=== PATIENT | male | born 1955 | race Caucasian/White ===

== ENCOUNTER 2020-10-24 19:41 | Emergency (ER) | payer OTHER ==
--- OUTSIDE RECORDS SUMMARY | 2020-10-24 19:45 | XMS REPORT | Continuity of Care Document ---
:1955 Author Organization [facility] t Address [address] [place] [address] Care Team Providers Name Role Phone Uvaldo Walker MD Primary Care Physician Uvaldo Walker MD Attending Clinician Pob, Lab Main Attending Clinician Unavailable Semaj WAN, Dieter Attending Clinician Provider, Urgent Care Attending Clinician Unavailable Doctor Unassigned, Name Attending Clinician Unavailable Clinton Townsend DO Attending Clinician Payers Payer Name Policy Type Policy Number Effective Date Expiration Date S ource Problems Condition Condition Condition Status Onset Resolution Last Treating Co mments Source Name Details Category Date Date Treatment Clinician Date Low-tensio Low-tensio Disease Active [facility] glaucoma n glaucoma 3-08 Danielle kes - of both of both 00:00: Medical eyes, eyes, 00 Center moderate moderate stage stage Allergies, Adverse Reactions, Alerts Allergy Allergy Status Severity Reaction(s) Onset Inactive Treating Comm ents Source Name Type Date Date Clinician Iodine Propensi Active Injected [facility] - Iodide adverse 00:00: Medical Containi reaction 00 [place] ng s Products Tetracyc Propensi Active [facility] - adverse 00:00: Medical reaction 00 [place] s codeine DA [facility] 4-12 00:00: [address] tetracyc DA Active [facility] line 08-31 00:00: [address] IODINE DA Active [facility] IV 08-31 00:00: [address] Social History Social Habit Start Date Stop Date Quantity Comments Source Sex Assigned At [facility] History of tobacco Snuff User [facility] use [facility] Cigarettes smoked 2016-08-08 2016-08-[address] [facility] - current (pack per 00:00:00 00:00:00 [facility] Center day) - Reported Cigarette 2016-08-08 2016-08-[address] [facility] - pack-years 00:00:00 00:00:00 [facility] Tobacco use and 2016-08-08 2016-08-[address] [facility] - exposure 00:00:00 00:00:00 [facility] Alcohol intake 2016-08-08 2016-08-08 [facility] 00:[facility]:00:00 of alcohol [facility] Center (finding) Tobacco Comment 2016-08-04 2016-08-04 1 [facility]00 [facility] Smoking Status Start Date Stop Date Source Current every day smoker 2016-08-08 00:00:00 [facility] Medications Ordered Filled Start Stop Current Ordering Indication Dosage Frequency Signature Comments Components Source Medication Medication Date Date Medication? Clinician (SIG) Name Name azelastine Yes 205.5ug Q.5D 205.[address] (ASTEPRO) 3-20 by Each [facility] - 0.15 % 09:43: Nare route Medic al (205.5 mcg) 35 2 (two) Cente r [place] times daily. levocetiriz 2017-0 Yes 5mg QD Take [address] ine (XYZAL) 3-20 by mouth Luke s - 5 MG tablet 09:43: every Medic al 35 evening. [place] pantoprazol 20170 Yes 20mg QD Take [address] e 3-20 by mouth [facility] - (PROTONIX) 09:43: daily. Medic al 20 MG 35 Center tablet atorvastati 0 Yes 40mg QD Take [address] n (LIPITOR) 3-20 by mouth Luke s - 40 MG 09:43: daily. Medical tablet 35 [place] metoprolol 0 Yes 50mg QD Take [address] (TOPROL-XL) 3-20 by mouth Luke s - 50 MG 24 hr 09:43: daily. Medi aixa tablet 35 [place] celecoxib Yes 200mg Take [address] (CELEBREX) 3-20 mg by [facility] - 200 MG 09:43: mouth Medical capsule 35 every 12 Center (twelve) hours as needed for Pain. fenofibrate 0 Yes 130mg Take [address] micronized 3-20 mg by [facility] - (ANTARA) 09:43: mouth Medical 130 MG 35 every Center capsule morning before breakfast. clopidogrel 0 Yes 75mg QD Take [address] (PLAVIX) 75 3-20 by mouth Luke s - mg tablet 09:43: daily. Medica l 35 [place] amLODIPine Yes 10mg QD Take [address] (NORVASC) 3-20 by mouth [facility] - 10 MG 09:43: daily. Medical tablet 35 [place] travoprost Yes 1[drp] QD Place [address] (TRAVATAN 3-20 drop into [facility] - Z) 0.004 % 09:43: both eyes Me dical Drop 35 nightly. [place] ophthalmic drops dorzolamide 0 Yes 1[drp] Q.5D [address] -timolol 3-20 (two) [facility] - (COSOPT) 09:43: times Medical 22.3-6.8 35 daily. [place] mg/mL ophthalmic solution tamsulosin 0 Yes .4mg QD Take 0.[address] (FLOMAX) 3-20 mg by [facility] - 0.4 mg Cp24 09:43: mouth Medic al 24 hr 35 daily. Center capsule spironolact Yes 25mg QD Take [address] one 12.5 MG 3-20 by mouth Luke s - halftab 09:43: daily. Medical half tablet 35 Center allopurinol 0 Yes 100mg QD Take [address] (ZYLOPRIM) 3-20 mg by [facility] - 100 MG 09:43: mouth Medical tablet 35 daily. Center hydroCHLORO 0 Yes 25mg QD Take [address] thiazide 3-20 by mouth [facility]ukes - (HYDRODIURI 09:43: daily. Medi aixa L) 25 MG 35 Center tablet losartan Yes 100mg QD Take [address] (COZAAR) 3-20 mg by [facility] - 100 MG 09:43: mouth Medical tablet 35 daily. Center ranolazine Yes 500mg Q.5D Take [address] (RANEXA) 3-20 mg by [facility] - 500 MG 12 09:43: mouth 2 Medic al hr tablet 35 (two) Center times daily. nitroglycer Yes .4mg Place 0.[address] in 3-20 mg under [facility] - (NITROSTAT) 09:43: the tongue Medical 0.4 MG SL 35 every 5 Center tablet (five) minutes as needed for Chest pain Put 1 pill under tongue every 5min as needed for chest pain.No more than 3 doses in 15min.Call 911 if pain is unrelieved 5min after 1st dose . triamcinolo Yes Q.5D Apply [facility] 3-20 topically [facility] - (KENALOG) 09:43: 2 (two) Medic al 0.025 % 35 times Center cream daily. diphenoxyla Yes 1{tbl} Take [address] te-atropine 3-20 tablet by Bianka es - (DIPHENOXYL 09:43: mouth 4 Med ical ATE 35 (four) Center W/ATROPINE) times 2.5-0.025 daily as mg per needed for tablet Diarrhea. sildenafil Yes 100mg Take [address] (VIAGRA) 3-20 mg by [facility]ukes - 100 MG 09:43: mouth Medical tablet 35 daily as Center needed for Erectile Dysfunctio n. niacin Yes 500mg Take [address] (SLO-NIACIN 3-20 mg by [facility] - ) 500 mg 09:43: mouth 2 Medica l tablet 35 (two) Center times daily with breakfast and dinner. aspirin 81 Yes 81mg QD Take [address] MG EC 3-20 by mouth [facility] - tablet 09:43: daily. Medical 35 Center HYDROcodone Yes 1{tbl} Take [address] -acetaminop 3-20 tablet by Bianka es - hen (NORCO 09:43: mouth Medica l 5-325) 35 every 6 Center 5-325 mg (six) per tablet hours as needed for Pain. cholecalcif Yes Take by [facility] deangelo, 3-20 mouth. [facility] - vitamin D3, 09:43: Medica l 2,000 unit 35 Center Cap vitamin E Yes 1000U QD Take 1,[address] 1000 UNIT 3-20 Units by [facility]ukes - capsule 09:43: mouth Medical 35 daily. [place] omega-3 Yes 2g Q.5D Take [address] fatty 3-20 by mouth 2 [facility] - acids-fish 09:43: (two) Medica l oil 35 times Center 340-1,000 daily. mg Cap per capsule multivitami Yes 1{tbl} QD Take [address] n per 3-20 tablet by [facility] - tablet 09:43: mouth Medical 35 daily. [place] coenzyme Yes 100mg QD Take [address] Q10 100 mg 3-20 mg by [facility]ukes - capsule 09:43: mouth Medical 35 daily. [place] Procedures This patient has no known procedures. Encounters Start End Encounter Admission Attending Care Care Encounter Source Date/Time Date/Time Type Type Clinicians Facility Department ID 2020-10-12 2020-10-12 [facility] [id number] 00:00:00 00:00:00 [facility] [id number] Uvaldo Evans [id number] Felicia [phone] nal [address] 2020-10-06 2020-10-06 [facility] [id number] 00:00:00 00:00:00 [facility] [id number] [place] [id number] Professio [phone] [facility] [address] 2020-09-22 2020-09-22 Information Systems Consultant Kylah Little [facility] 1.2.840.114 [id number] 10:23:34 10:38:34 Visit Lab Main Cristina [id number] [place] [id number] Professio [phone] [address] 2020-09-16 2020-09-16 [facility] 1.2.840.114 [id number] 08:30:29 23:59:00 Encounter Tisha Cristina [id number] Dieter [place] [id number] [place] [id number] 2020-09-08 2020-09-08 Refill [facility] [id number] 00:00:00 00:00:00 [facility] [id number] [place] [id number] Professio [phone] [place] [address] [address] 2020-09-07 2020-09-07 [facility] [id number] 00:00:00 00:00:00 [facility] [id number] [place] [id number] Professio [phone] [place] [address] [address] 2020-09-06 2020-09-06 [facility] [id number] 12:20:11 12:40:11 [facility] [id number] [place] [id number] Professio [phone] [place] [address] [address] 2020-08-31 2020-08-31 Orders Doctor YURIY 1.2.840.114 [id number] 00:00:00 00:00:00 Only Unassigned, [facility] [id number] [place] [facility] [id number] 2020-08-19 2020-08-19 Information Systems Consultant Kylah Little [facility] 1.2.840.114 [id number] 13:50:27 14:05:27 Visit Lab Main Cristina [id number] [place] [id number] Professio [phone] [facility] 353 [facility] 2020-08-19 2020-08-19 Orders Doctor YURIY 1.2.840.114 [id number] 00:00:00 00:00:00 Only Unassigned, UMA [id number] [place] [facility] [id number] [id number] 2020-08-15 2020-08-15 [facility] 1.2.840.114 [id number] 00:00:00 00:00:00 [facility] [id number] Edt[place] [id number] Professio [phone] [place] [address] [address] 2020-07-28 2020-07-28 [facility] 1.2.840.114 [id number] 00:00:00 00:00:00 [facility] [id number] [facility] [id number] Professio [phone] [place] [address] [address] One 2020-07-27 2020-07-27 Patient [facility] 1.2.840.114 [id number] 00:00:00 00:00:00 Outreach [facility] [id number] [facility] [id number] PAVMARIAM [id number] [id number] 2020-07-21 2020-07-21 [facility] [id number] 14:42:37 23:59:00 Encounter Rob Evans [id number] Edtoma Wesis [id number] [place] [id number] 2020-07-21 2020-07-21 [facility] 1.2.184.000 [id number] 14:41:02 14:41:02 Encounter Rob Evans [id number] Edtoma Weiss [id number] [place] [id number] 2020-07-21 2020-07-21 [facility] 1.[facility].114 [id number] 00:00:00 00:00:00 [facility] [id number] [place] [id number] Professio [phone] [place] [address] [address] 2020-07-16 2020-07-16 Orders Doctor YURIY 1.2.840.114 [id number] 00:00:00 00:00:00 Only Unassigned, [facility]MA [id number] [place] [facility] [id number] 2020-07-14 2020-07-14 [facility] 1.2.840.114 [id number] 00:00:00 00:00:00 [facility] [id number] [place] [id number] Professio [phone] [place] [address] Office [facility] One 2020-07-03 2020-07-03 [facility] 1.2.840.114 [id number] 00:00:00 00:00:00 [facility] [id number] [place] [id number] Professio [phone] [address] One 2020-07-01 2020-07-01 Office [facility] 1.2.840.114 [id number] 14:00:59 14:15:59 Visit [facility] [id number] [place] [id number] Professio [phone] [address] One Results Test Description Test Time Test Comments Results Result Comments Source BASIC METABOLIC PANEL 2019-07-28 05:39:00 Test Item Value Reference Range Interpretation Comme nts SODIUM (test code = NA) 140 MMOL/L 137-145 N POTASSIUM (test code = K) 3.3 MMOL/L 3.5-5.1 L CHLORIDE (test code = CL) 108 MMOL/L 98-107 H CARBON DIOXIDE (test code = CO2) 25 MMOL/L 22-30 N GLUCOSE (test code = GLU) 99 MG/DL 74-106 N BLOOD UREA NITROGEN (test code = 29 MG/DL 9-20 H BUN) GLOMERULAR FILTRATION RATE (test > 60 Reporting units: ml/min/1.73 code = GFR) m2 (Modified M DRD Formula)Referen ce Range: > or = 60 ml/min/1.7 3 m2 CREATININE (test code = CREAT) 1.20 MG/DL 0.66-1.25 N CALCIUM (test code = CA) 8.9 MG/DL 8.4-10.2 N BASIC METABOLIC [id number] 05:37:00 Test Item Value Reference Range Interpretation Comments SODIUM (test code = NA) 140 MMOL/L 137-145 N POTASSIUM (test code = K) 3.3 MMOL/L 3.5-5.1 L CHLORIDE (test code = CL) 108 MMOL/L 98-107 H CARBON DIOXIDE (test code = CO2) MMOL/L 22-30 GLUCOSE (test code = GLU) MG/DL 74-106 BLOOD UREA NITROGEN (test code = MG/DL 9-20 BUN) GLOMERULAR FILTRATION RATE (test code = GFR) CREATININE (test code = CREAT) MG/DL 0.66-1.25 CALCIUM (test code = CA) MG/DL 8.7-9.7 CBC W/AUTO [id number] 05:18:00 Test Item Value Reference Range Interpretation Comments WHITE BLOOD CELL (test code = 10.7 K/MM3 3.8-9.8 H WBC) RED BLOOD CELL (test code = 3.12 M/MM3 3.95-5.67 L RBC) HEMOGLOBIN (test code = HGB) 10.2 G/DL 12.4-16.7 L HEMATOCRIT (test code = HCT) 30.4 % 35.9-49.5 L MEAN CELL VOLUME (test code = 97 fL 81.7-96.1 H MCV) MEAN CELL HGB (test code = MCH) 32.7 pg 27.6-33.2 N MEAN CELL HGB CONCETRATION 33.6 % 32.9-35.5 N (test code = MCHC) RED CELL DISTRIBUTION WIDTH 14.5 % 12.1-15.2 N (test code = RDW) PLATELET COUNT (test code = 228 K/MM3 129-368 N PLT) MEAN PLATELET VOLUME (test code 9.9 fl 7.4-10.4 N = MPV) NEUTROPHIL % (test code = NT%) 76.3 % 43-75 H IMMATURE GRANULOCYTE % (test 0.6 % 0.0-2.0 N code = IG%) LYMPHOCYTE % (test code = LY%) 13.4 % 14-44 L MONOCYTE % (test code = MO%) 9.4 % 4-13 N EOSINOPHIL % (test code = EO%) 0.2 % 0-6 N BASOPHIL % (test code = BA%) 0.1 % 0-2 N NUCLEATED RBC % (test code = 0.0 % 0-1.0 N NRBC%) NEUTROPHIL # (test code = NT#) 8.18 K/mm3 2.0-7.6 H IMMATURE GRANULOCYTE # (test 0.06 x10 3/uL 0-0.03 H code = IG#) LYMPHOCYTE # (test code = LY#) 1.44 K/mm3 1.0-3.8 N MONOCYTE # (test code = MO#) 1.01 K/mm3 0.1-0.8 H EOSINOPHIL # (test code = EO#) 0.02 K/mm3 0.0-0.2 N BASOPHIL # (test code = BA#) 0.01 K/mm3 0.0-0.2 N NUCLEATED RBC # (test code = 0.00 K/mm3 0.0-0.1 N NRBC#) [id number] 11:30:00 Test Item Value Reference Range Interpretation Comments ACT-ISTAT (test code = ACTI) 180 SEC 74-137 H BASIC METABOLIC [id number] 07:26:00 Test Item Value Reference Range Interpretation Comments SODIUM (test code = 142 MMOL/L 137-145 N NA) POTASSIUM (test code = 4.4 MMOL/L 3.5-5.1 N K) CHLORIDE (test code = 108 MMOL/L 98-107 H CL) CARBON DIOXIDE (test 28 MMOL/L 22-30 N code = CO2) GLUCOSE (test code = 102 MG/DL 74-106 N GLU) BLOOD UREA NITROGEN 27 MG/DL 9-20 H (test code = BUN) GLOMERULAR FILTRATION > 60 Report ing units: RATE (test code = GFR) ml/mi n/1.73 m2 (Modified MDRD Formula)Referen ce Range: > or = 6 0 ml/min/1.73 m2 CREATININE (test code 1.20 MG/DL 0.66-1.25 N = CREAT) CALCIUM (test code = 10.1 MG/DL 8.4-10.2 N CA) Comments to State Inspector: NURSE MOOKIE BRING SPECIMEN TO LABIs this a LINE draw? NComments to State Inspector: NURSE WILL BRING SPECIMEN TO [id number] 07:26:00 Test Item Value Reference Range Interpretation Comments MAGNESIUM (test code = MAG) 1.9 MG/DL 1.6-2.3 N Comments to State Inspector: NURSE MOOKIE BRING SPECIMEN TO LABIs this a LINE draw? NComments to State Inspector: NURSE WILL BRING SPECIMEN TO LABLIPID PROFILE (CORONARY RISK)2019-07-27 07:26:00 Test Item Value Reference Range Interpretation Comments TRIGLYCERIDES (test 119 MG/DL TRIGLYCE RIDES code = TRIG) REFERENCE RANGE:Normal: < 150 mg/dLBorderline High: 150-199 mg/dLHi gh: 200-499 mg/dLVe ry High: >=500 mg/ dL CHOLESTEROL (test code 111 MG/DL <200 = CHOL) HDL CHOLESTEROL (test 36 MG/DL 40-59 L code = HDL) LIPOPROTEIN LDL (test 59 MG/DL 0-99 N code = LDL) OPTIMAL........ .<100 mg/dLNEAR OPTIMAL/ABOVE OPTIMAL........ .100-12 9 mg/dL BORDERLINE HIGH.........13 0-159 mg/dL HIGH.........16 0-189 mg/dL VERY HIGH...... ...>/= 190 mg/dL BASIC METABOLIC [id number] 07:22:00 Test Item Value Reference Range Interpretation Comments SODIUM (test code = NA) 142 MMOL/L 137-145 N POTASSIUM (test code = K) 4.4 MMOL/L 3.5-5.1 N CHLORIDE (test code = CL) 108 MMOL/L 98-107 H CARBON DIOXIDE (test code = CO2) MMOL/L 22-30 GLUCOSE (test code = GLU) MG/DL 74-106 BLOOD UREA NITROGEN (test code = MG/DL 9-20 BUN) GLOMERULAR FILTRATION RATE (test code = GFR) CREATININE (test code = CREAT) MG/DL 0.66-1.25 CALCIUM (test code = CA) MG/DL 8.7-9.7 Comments to State Inspector: NURSE MOOKIE BRING SPECIMEN TO LABIs this a LINE draw? NComments to State Inspector: NURSE WILL BRING SPECIMEN TO [id number] 07:22:00 Test Item Value Reference Range Interpretation Comments MAGNESIUM (test code = MAG) MG/DL 1.6-2.3 Comments to State Inspector: NURSE MOOKIE BRING SPECIMEN TO LABIs this a LINE draw? NComments to State Inspector: NURSE WILL BRING SPECIMEN TO LABLIPID PROFILE (CORONARY RISK)2019-07-27 07:14:00 Test Item Value Reference Range Interpretation Comments TRIGLYCERIDES (test 119 MG/DL TRIGLYCE RIDES code = TRIG) REFERENCE RANGE:Normal: < 150 mg/dLBorderline High: 150-199 mg/dLHi gh: 200-499 mg/dLVe ry High: >=500 mg/ dL CHOLESTEROL (test code 111 MG/DL <200 = CHOL) HDL CHOLESTEROL (test 36 MG/DL 40-59 L code = HDL) LIPOPROTEIN LDL (test MG/DL 0-99 code = LDL) PROTHROMBIN [id number] 07:02:00 Test Item Value Reference Range Interpretation Comments PROTHROMBIN TIME 10.8 SECONDS 9.4-12.5 N PATIENT (test code = PTP) INTERNATIONAL NORMAL 1.0 The INR is to be RATIO (test code = used only for INR) monitoring oral anticoagulantth erap y. INDICATION I NR VALUE ---- ---- ---- -------1. Prophylaxis, de ep venous thrombos is, including hig h risk surgery. 2.0 - 3.0 2. Prophylaxis, de ep venous thrombos is, hip surgery, treatment for d eep venous thrombosis or pulmonary prevention of systemic emboli sm in patients wit h valvular heart disease, atrial fibrillation, tissue heart va lve, or acute myocar dial infarction. 2.0 - 3 .0 3. Mechanical prosthesis hear t valves, recurrent syste esther embolism. 3.0 - 4.5 Comments to State Inspector: NURSE WILL BRING SPECIMEN TO LABPTT ACTIVATED 2019-07-27 07:02:00 Test Item Value Reference Range Interpretation Comments PTT ACTIVATED (test code = APTT) 31.4 SECONDS 25.1-36.5 N Comments to State Inspector: NURSE WILL BRING SPECIMEN TO LABCBC W/AUTO DIFF 2019-07-27 06:49:00 Test Item Value Reference Range Interpretation Comments WHITE BLOOD CELL (test code = 6.8 K/MM3 3.8-9.8 N WBC) RED BLOOD CELL (test code = 3.60 M/MM3 3.95-5.67 L RBC) HEMOGLOBIN (test code = HGB) 11.9 G/DL 12.4-16.7 L HEMATOCRIT (test code = HCT) 36.5 % 35.9-49.5 N MEAN CELL VOLUME (test code = 101 fL 81.7-96.1 H MCV) MEAN CELL HGB (test code = MCH) 33.1 pg 27.6-33.2 N MEAN CELL HGB CONCETRATION 32.6 % 32.9-35.5 L (test code = MCHC) RED CELL DISTRIBUTION WIDTH 14.5 % 12.1-15.2 N (test code = RDW) PLATELET COUNT (test code = 223 K/MM3 129-368 N PLT) MEAN PLATELET VOLUME (test code 9.8 fl 7.4-10.4 N = MPV) NEUTROPHIL % (test code = NT%) 63.1 % 43-75 N IMMATURE GRANULOCYTE % (test 0.3 % 0.0-2.0 N code = IG%) LYMPHOCYTE % (test code = LY%) 20.9 % 14-44 N MONOCYTE % (test code = MO%) 11.2 % 4-13 N EOSINOPHIL % (test code = EO%) 4.1 % 0-6 N BASOPHIL % (test code = BA%) 0.4 % 0-2 N NUCLEATED RBC % (test code = 0.0 % 0-1.0 N NRBC%) NEUTROPHIL # (test code = NT#) 4.30 K/mm3 2.0-7.6 N IMMATURE GRANULOCYTE # (test 0.02 x10 3/uL 0-0.03 N code = IG#) LYMPHOCYTE # (test code = LY#) 1.42 K/mm3 1.0-3.8 N MONOCYTE # (test code = MO#) 0.76 K/mm3 0.1-0.8 N EOSINOPHIL # (test code = EO#) 0.28 K/mm3 0.0-0.2 H BASOPHIL # (test code = BA#) 0.03 K/mm3 0.0-0.2 N NUCLEATED RBC # (test code = 0.00 K/mm3 0.0-0.1 N NRBC#) Comments to State Inspector: NURSE WILL BRING SPECIMEN TO LABIs this a LINE draw? N
[2020-10-24 21:12] LABS: Urine Blood Negative (Negative); Urine Glucose Negative (Negative); Urine Protein 2+ (Negative); Urine pH 6.5 (5.0-7.0)
[2020-10-24] MEDS ORDERED: MORPHINE 4 MG/ML SYR ONE (21:14)
[2020-10-24] MEDS ORDERED: ONDANSETRON 4 MG/2 ML VIAL ONE (21:14)
[2020-10-24 21:27] LABS: Absolute Lymphocytes (CBC) 1.6 K/uL (0.7-4.9); Basophils % 0.3 % (0-1.3); Hematocrit 30.8 % (39.6-49.0); Lymphocytes % 20.5 % (15.3-44.8); MPV 8.2 fL (7.6-11.3); RBC Red Blood Cell Count 3.13 M/uL (4.33-5.43)
[2020-10-24 21:43] LABS: Albumin 3.4 g/dL (3.4-5.0); Bilirubin Direct 0.1 mg/dL (0-0.2); Bilirubin Total 0.3 mg/dL (0.2-1.0); Potassium 4.2 mmol/L (3.5-5.1); Protein, Total 6.4 g/dL (6.4-8.2)
[2020-10-24 21:50] LABS: Urine Bacteria 20-50 /HPF (NONE SEEN); Urine Mucus 1+ /HPF (NONE SEEN)
--- NOTE | 2020-10-24 22:38 | ER ---
Nurse's Notes [facility] Name: Huan Gibbs Age: 65 yrs Sex: Male : 1955 Arrival Date: 10/24/2020 Time: 19:49 Bed 14 Private MD: Diagnosis: Calculus of kidney and ureter Presentation: 10/24 20:00 Chief complaint: Patient states: the left side of my abdomen is hurting so bad started rr5 2 days ago. I have been diagnosed recently with kidney stone. no nausea or vomiting reported. Coronavirus screen: Client denies travel out of the [place] in the last 14 days. At this time, the client does not indicate any symptoms associated with coronavirus-19. Ebola Screen: Patient negative for fever greater than or equal to 101.5 degrees Fahrenheit, and additional compatible Ebola Virus Disease symptoms Patient denies exposure to infectious person. Initial Sepsis Screen: Does the patient meet any 2 criteria? No. Patient's initial sepsis screen is negative. Does the patient have a suspected source of infection? No. Patient's initial sepsis screen is negative. Risk Assessment: Do you want to hurt yourself or someone else? Patient reports no desire to harm self or others. Onset of symptoms was October 22, 2020. 20:00 Method Of Arrival: Ambulatory rr5 20:00 Acuity: BRII 3 rr5 Historical: - Allergies: 20:05 Iodine; rr5 20:05 tetracycline; rr5 - PMHx: 20:05 Kidney stones; Myocardial infarction; rr5 20:06 Hypertension; rr5 - PSHx: 20:05 Hernia repair; back surgery; Knee surgery; hemorrhoid; Lithotripsy; Heart stents; rr5 - Immunization history:: Adult Immunizations up to date, Client reports receiving the 2nd dose of the Covid vaccine. - Social history:: Smoking status: Patient reports the use of cigarette tobacco products, smokes one pack cigarettes per day. Patient uses alcohol, occasionally. Patient/guardian denies using street drugs. Screenin:18 Abuse screen: Denies threats or abuse. Nutritional screening: No deficits noted. vg1 Tuberculosis screening: No symptoms or risk factors identified. Fall Risk No fall in past 12 months (0 pts). No secondary diagnosis (0 pts). IV access (20 points). Ambulatory Aid- None/Bed Rest/Nurse Assist (0 pts). Gait- Normal/Bed Rest/Wheelchair (0 pts) Mental Status- Oriented to own ability (0 pts). Total Cox Fall Scale indicates No Risk (0-24 pts). Assessment: 20:17 General: Appears in no apparent distress. comfortable, Behavior is calm, cooperative. vg1 Pain: Complains of pain in Left flank and LLQ Pain currently is 8 out of 10 on a pain scale. Noted to be guarding. Neuro: Level of Consciousness is awake, alert, obeys commands, Oriented to person, place, time, situation. Cardiovascular: Patient's skin is warm and dry. Respiratory: Airway is patent Respiratory effort is even, unlabored. GI: Patient currently denies nausea, vomiting. : Urine is [place] Denies burning with urination. EENT: No signs and/or symptoms were reported regarding the EENT system. Derm: Skin is intact, is healthy with good turgor. Musculoskeletal: Circulation, motion, and sensation intact. 21:13 Reassessment: Patient appears in no apparent distress at this time. No changes from vg1 previously documented assessment. Patient and/or family updated on plan of care and expected duration. Pain level reassessed. Patient is alert, oriented x 3, equal unlabored respirations, skin warm/dry/pink. 22:40 Reassessment: Verbal order from Dr. Lopez for [place] 5-325mg PO now x1; patient reports lp1 continued pain to left flank. Vital Signs: 20:00 BP 157 / 88; Pulse 61; Resp 16; Temp 97.7; Pulse Ox 99% ; Weight 79.38 kg; Height 5 ft. rr5 11 in. (180.34 cm); Pain 8/10; 20:18 BP 167 / 85; Pulse 62; Resp 16; Pulse Ox 100% on R/A; vg1 21:00 BP 170 / 82; Pulse 62; Resp 16; Pulse Ox 97% on R/A; vg1 22:30 BP 155 / 77; Pulse 60; Resp 18; Pulse Ox 97% on R/A; Pain 6/10; lp1 20:00 Body Mass Index 24.41 (79.38 kg, 180.34 cm) rr5 ED Course: 19:49 Patient arrived in ED. cf2 20:03 Triage completed. rr5 20:06 Arm band placed on left wrist. rr5 20:11 Mireille Mccarthy, RN is Primary Nurse. vg1 20:18 Sriram Lopez MD is Attending Physician. tw4 20:18 Patient has correct armband on for positive identification. Bed in low position. Call vg1 light in reach. Side rails up X 1. 20:57 Initial lab(s) drawn, by me, sent to lab. Inserted saline lock: 20 gauge in right vg1 antecubital area, using aseptic technique. Blood collected. 21:36 CT Stone Protocol In Process Unspecified. EDMS 22:00 Report received from MENG Kendrick. lp1 22:40 No provider procedures requiring assistance completed. IV discontinued, No lp1 redness/swelling at site. Pressure dressing applied. Administered Medications: 21:00 Drug: Zofran (Ondansetron) 4 mg Route: IVP; Site: right antecubital; vg1 22:05 Follow up: Response: No adverse reaction vg1 21:02 Drug: morphine 4 mg Route: IVP; Site: right antecubital; vg1 22:05 Follow up: Response: No adverse reaction; RASS: Alert and Calm (0) vg1 22:45 Drug: [place] (HYDROcodone-acetaminophen) 5 mg-325 mg 1 tabs {Note: verbal order per Dr. la Lopez.} Route: PO; 22:50 Follow up: Response: Medication administered at discharge. lp1 Outcome: 22:37 Discharge ordered by . tw4 22:45 Discharged to home ambulatory, with family. lp1 22:45 Condition: good 22:45 Discharge instructions given to patient, Instructed on discharge instructions, follow up and referral plans. medication usage, Demonstrated understanding of instructions, follow-up care, medications, Prescriptions given X 1. 22:50 Patient left the ED. lp1 Signatures: Dispatcher [employer] EDNJ Moriah Jennings RN RN lp1 Sriram Lopez MD MD tw4 Edward Olson RN RN rr5 Julissa Paez cf2 Mireille Mccarthy, RN RN vg1 Corrections: (The following items were deleted from the chart) 20:20 20:17 : Urine is [place] vg1 vg1 23:07 23:06 Patient left the ED. lp1 lp1
--- NOTE | 2020-10-24 22:38 | EDPHYS ---
Physician Documentation [facility] Name: Huan Gibbs Age: 65 yrs Sex: Male : 1955 Arrival Date: 10/24/2020 Time: 19:49 Bed 14 Private MD: ED Physician Sriram Lopez Historical: - Allergies: 10/24 20:05 Iodine; rr5 20:05 tetracycline; rr5 - PMHx: 20:05 Kidney stones; Myocardial infarction; rr5 20:06 Hypertension; rr5 - PSHx: 20:05 Hernia repair; back surgery; Knee surgery; hemorrhoid; Lithotripsy; Heart stents; rr5 - Immunization history:: Adult Immunizations up to date, Client reports receiving the 2nd dose of the Covid vaccine. - Social history:: Smoking status: Patient reports the use of cigarette tobacco products, smokes one pack cigarettes per day. Patient uses alcohol, occasionally. Patient/guardian denies using street drugs. Vital Signs: 20:00 BP 157 / 88; Pulse 61; Resp 16; Temp 97.7; Pulse Ox 99% ; Weight 79.38 kg; Height 5 ft. rr5 11 in. (180.34 cm); Pain 8/10; 20:18 BP 167 / 85; Pulse 62; Resp 16; Pulse Ox 100% on R/A; vg1 21:00 BP 170 / 82; Pulse 62; Resp 16; Pulse Ox 97% on R/A; vg1 22:30 BP 155 / 77; Pulse 60; Resp 18; Pulse Ox 97% on R/A; Pain 6/10; lp1 20:00 Body Mass Index 24.41 (79.38 kg, 180.34 cm) rr5 MDM: 22:37 Patient medically screened. 10/24 20:42 Order name: Basic Metabolic Panel 10/24 20:42 Order name: CBC with Diff 10/24 20:42 Order name: Hepatic Function 10/24 20:42 Order name: Lipase 10/24 20:42 Order name: Urine Microscopic Only 10/24 21:12 Order name: Urine Dipstick-Ancillary [facility] 10/24 20:42 Order name: IV Saline Lock; Complete Time: 21:06 tw10/24 20:42 Order name: Labs collected and sent; Complete Time: 21:06 4 10/24 20:42 Order name: Urine Dipstick-Ancillary (obtain specimen); Complete Time: 21:13 tw4 10/24 20:48 Order name: CT Stone Protocol tw4 10/24 21:52 Order name: Urine Culture EDAZ Administered Medications: 21:00 Drug: Zofran (Ondansetron) 4 mg Route: IVP; Site: right antecubital; vg1 22:05 Follow up: Response: No adverse reaction vg1 21:02 Drug: morphine 4 mg Route: IVP; Site: right antecubital; vg1 22:05 Follow up: Response: No adverse reaction; RASS: Alert and Calm (0) vg1 22:45 Drug: [place] (HYDROcodone-acetaminophen) 5 mg-325 mg 1 tabs {Note: verbal order per Dr. la Lopez.} Route: PO; 22:50 Follow up: Response: Medication administered at discharge. 1 Disposition: 10/24/20 22:37 Discharged to Home. Impression: Calculus of kidney and ureter. - Condition is Stable. - Discharge Instructions: Kidney Stones, Chronic Kidney Disease, Adult. - Prescriptions for Tramadol 50 mg Oral Tablet - take 1 tablet by ORAL route every 8 hours as needed; 12 tablet. - Medication Reconciliation Form, Thank You Letter, Antibiotic Education, Prescription Opioid Use form. - Follow up: Private Physician; When: Upon discharge from the Emergency Department; Reason: Recheck today's complaints, Continuance of care, Re-evaluation by your physician. - Problem is new. - Symptoms have improved. Signatures: Dispatcher [employer] EDAZ Moriah Jennings RN RN lp1 Sriram Lopez MD MD tw4 Edward Olson, RN RN rr5 Mireille Mccarthy, RN RN vg1 Corrections: (The following items were deleted from the chart) 23:06 22:37 10/24/2020 22:37 Discharged to Home. Impression: Calculus of kidney and ureter. lp1 Condition is Stable. Forms are Medication Reconciliation Form, Thank You Letter, Antibiotic Education, Prescription Opioid Use. Follow up: Private Physician; When: Upon discharge from the Emergency Department; Reason: Recheck today's complaints, Continuance of care, Re-evaluation by your physician. Problem is new. Symptoms have improved. tw4
[2020-10-24] MEDS ORDERED: HYDROCODONE/APAP 5/325 MG TAB ONE (23:06)
[2020-10-24 23:24] VITALS: TEMP 97.7
[2020-10-24 23:27] VITALS: BP 170/82; O2SAT 97
--- NOTE | 2020-10-26 10:43 | RAD REPORT ---
EXAM DESCRIPTION: CT - Stone Protocol - 10/25/2020 5:49 am CLINICAL HISTORY: PAIN. COMPARISON: CT of the abdomen and pelvis without contrast from November 15, 2018. TECHNIQUE: Serial axial CT images were obtained from above the diaphragm through the pubic symphysis without administration of intravenous or oral contrast. All CT scans are performed using dose optimization techniques as appropriate, including automated exp osure control and/or standardized protocols, where dose is adjusted for indication for exam and body habitus. FINDINGS: Thoracic: No significant abnormality. Hepatobiliary: Unchanged faint hypodensity along the lateral aspect of the right hepatic lobe measure s 2.2 cm, likely a complex cyst or benign hemangioma given its stability. The gallbladder is unremark able. No biliary ductal dilatation. Pancreas: Unremarkable. Spleen: Unremarkable. Gastrointestinal: Multiple surgical clips in the left upper abdomen. No evidence of bowel obstructi on or perienteric inflammation. The appendix is normal. Left colonic diverticulosis. Small amount fec al material in the colon. Adrenals: No abnormality identified in either adrenal gland. Renal: Numerous bilateral renal cysts, very large on the left, measuring up to 14 cm at the inferior pole, similar to prior. No hydronephrosis. Small bilateral nonobstructive renal calculi. Bladder/Reproductive: Mild diffuse wall thickening of the urinary bladder and the setting of underdis tention and mild prostatomegaly. Vascular/Lymphatics: No lymphadenopathy identified by CT size criteria. Abdominal aorta is normal in caliber. Moderate calcific atherosclerosis. Musculoskeletal: No concerning osseous lesion identified. Spinal degenerative changes, most prominent at L5-S1. Fluid / peritoneum: No significant free fluid. No free intraperitoneal air identified. IMPRESSION: 1. No acute abnormality identified in the abdomen or pelvis by CT. 2. Numerous bilateral renal cysts, very large on the left. No obvious concerning renal lesion on th is noncontrast exam. Small bilateral nonobstructive renal calculi. No ureteral calculi or hydronephro sis. 3. Mild diffuse wall thickening of the urinary bladder and the setting of underdistention and mild prostatomegaly. Correlate for cystitis. Electronically signed by: Kamilah Bowles MD 10/24/2020 9:48 PM CDT Due to temporary technical issues with the PACS/Fluency reporting system, reports are being signed by the in house radiologist without review as a courtesy to ensure prompt reporting. The interpreting r adiologist is fully responsible for the content of the report.
== END 2020-10-24 23:06 | disposition home or self-care (01) ==
LOC: ER 19:41
DX: N20.2 Calculus of kidney with calculus of ureter (principal); I10 Essential (primary) hypertension; F17.210 Nicotine dependence, cigarettes, uncomplicated; Z88.1 Allergy status to other antibiotic agents; Z91.048 Other nonmedicinal substance allergy status; Z95.818 Presence of other cardiac implants and grafts
CPT/HCPCS: 87088; 85025; 87086; 80048; 36415; 80076; 83690; 76377; 74176; 96375; 96374; 99284; J2405; 81003; 81015

== ENCOUNTER 2024-01-27 16:19 | Emergency (ER) | payer OTHER ==
[2024-01-27] MEDS ORDERED: NA CHLORIDE 0.9% 1,000 ML ONE (18:03)
[2024-01-27 18:22] LABS: Absolute Eosinophils 0.2 K/uL (0-0.5); Absolute Lymphocytes (CBC) 1.7 K/uL (0.7-4.9); Absolute Monocytes 1.3 K/uL (0.1-1.3); Absolute Neutrophil 7.3 K/uL (1.8-8.0); Basophils % 0.2 % (0-1.3); Eosinophils % 2.1 % (0-4.4); Hematocrit 31.3 % (39.6-49.0); Hemoglobin 10.4 g/dL (13.6-17.9); Lymphocytes % 16.2 % (15.3-44.8); MCH 33.6 pg (27.0-35.0); MCHC 33.2 g/dL (32.0-36.0); MCV 101.4 fL (80-100); MPV 8.6 fL (7.6-11.3); Monocytes % 12.4 % (3.3-12.3); Neutrophils % 69.1 % (41.7-73.7); Platelets 162 thou/uL (152-406); RBC Red Blood Cell Count 3.09 M/uL (4.33-5.43); Red Cell Distribution Width 14.6 % (12.1-15.2)
[2024-01-27 18:34] LABS: Albumin 3.3 g/dL (3.4-5.0); Albumin/Globulin Ratio 1.1 (1.1-1.8); Anion Gap 11.7 mEq/L (5.0-15.0); Bilirubin Total 0.7 mg/dL (0.2-1.0); Globulin 3.1 g/dL (2.3-3.5); Potassium 3.7 mEq/L (3.5-5.1); Protein, Total 6.4 g/dL (6.4-8.2)
--- NOTE | 2024-01-27 19:56 | RAD REPORT ---
EXAM DESCRIPTION: CT - Abdomen Pelvis Wo Contrast - 01/27/2024 7:21 pm CLINICAL HISTORY: diarrhea;Abd pain COMPARISON: Stone Protocol dated 10/24/2020; Stone Protocol dated 11/15/2018; CTSTONE PROTOCOL dated 01/23/2014; CT ABDOMEN PELVIS WO CONTRAST dated 07/21/2013 TECHNIQUE: Thin cut axial CT imaging of the abdomen and pelvis was performed without IV contrast. Mu ltiplanar reformats were generated and reviewed. All CT scans are performed using dose optimization technique as appropriate and may include automated exposure control or mA/KV adjustment according to patient size. FINDINGS: No suspicious findings in the lung bases. The liver demonstrates stable hypoattenuating peripheral right lobe subcapsular 2.1 cm lesion, not we ll characterized. Spleen, adrenal glands, and pancreas show no suspicious findings. Gallbladder and b iliary tree are also without suspicious finding. Bilateral renal exophytic fluid density lesions, some showing wall calcifications, without suspicious parenchymal findings within limits of noncontrast technique. Some of the cystic lesions have increas ed in size since 2020, in particular the dominant exophytic left lower pole lesion which now measures 17.3 x 14.7 cm in greatest axial dimensions were previously measured up to 14 cm. No evidence of hyd roureteronephrosis. Bilateral nonobstructing renal calculi most abundant at the lower poles, collecti vely measuring 9 mm on the left and 8 mm on the right, not significantly changed. Surgical clips near the epigastrium, may relate to fundoplication or gastric bypass. Appendix is unre markable. Mild distal colonic diverticulosis. No dilated bowel loops or bowel wall thickening. No bailee e air, free fluid or inflammatory stranding. No hernia, mass or bulky lymphadenopathy. Prostatic calc ifications. The urinary bladder is without significant finding. No suspicious bony findings. IMPRESSION: No acute intra-abdominal process. Bilateral renal exophytic cystic lesions, some of which demonstrate interval increase in size, withou t a suspicious focal renal lesion within limits of noncontrast CT. Bilateral nonobstructing renal calculi as above. And mild distal colonic diverticulosis.
--- NOTE | 2024-01-27 20:55 | ER ---
Nurse's Notes [facility] Name: Huan Gibbs Age: 68 yrs Sex: Male : 1955 Arrival Date: 01/27/2024 Time: 16:19 Bed 7 Private MD: Diagnosis: Diarrhea, unspecified Presentation: 01/26 16:46 Chief complaint: Patient states: DIARRHEA X 3 DAYS. HX OF IBS. HAS BEEN TAKING db DIPHENOXELATE. Coronavirus screen: Client denies travel out of the [place] in the last 14 days. At this time, the client does not indicate any symptoms associated with coronavirus-19. Ebola Screen: Patient negative for fever greater than or equal to 101.5 degrees Fahrenheit, and additional compatible Ebola Virus Disease symptoms Patient denies exposure to infectious person. Patient denies travel to an Ebola-affected area in the 21 days before illness onset. No symptoms or risks identified at this time. Initial Sepsis Screen: Does the patient meet any 2 criteria? No. Patient's initial sepsis screen is negative. Does the patient have a suspected source of infection? No. Patient's initial sepsis screen is negative. Risk Assessment: Do you want to hurt yourself or someone else? Patient reports no desire to harm self or others. Onset of symptoms was January 27, 2024. 16:46 Method Of Arrival: Ambulatory db 16:46 Acuity: BRII 3 db Triage Assessment: 16:47 General: Appears in no apparent distress. comfortable, Behavior is calm, cooperative. db Pain: Complains of pain in abdomen. Neuro: Level of Consciousness is awake, alert, obeys commands, Oriented to person, place, time, situation. Respiratory: Airway is patent Respiratory effort is even, unlabored, Respiratory pattern is regular, symmetrical. GI: Abdomen is flat, non-distended, Reports lower abdominal pain, upper abdominal pain, diarrhea. Historical: - Allergies: 16:47 Iodine; db 16:47 Tetracycline; db - PMHx: 16:47 Hypertension; Kidney stones; Myocardial infarction; db - Immunization history:: Adult Immunizations unknown. - Infectious Disease History:: Denies. - Social history:: Smoking status: Patient reports the use of cigarette tobacco products, smokes one-half pack cigarettes per day. Screenin:19 [facility] ED Fall Risk Assessment (Adult) History of falling in the last 3 months, ph including since admission No falls in past 3 months (0 pts) Confusion or Disorientation No (0 pts) Intoxicated or Sedated No (0 pts) Impaired Gait No (0 pts) Mobility Assist Device Used No (0 pt) Altered Elimination No (0 pt) Score/Fall Risk Level 0 - 2 = Low Risk Oriented to surroundings, Maintained a safe environment, Hourly rounding (assess needs \T\ fall precautionary measures) done. Abuse screen: Denies threats or abuse. Denies injuries from another. Nutritional screening: No deficits noted. Tuberculosis screening: No symptoms or risk factors identified. Assessment: 18:20 General: Appears in no apparent distress. Behavior is calm, cooperative. Pain: ph Complains of pain in abdomen. Neuro: Level of Consciousness is awake, alert, obeys commands, Oriented to person, place, time, situation. Cardiovascular: Capillary refill < 3 seconds in bilateral fingers Patient's skin is warm and dry. Respiratory: Airway is patent is compromised Respiratory effort is. GI: Abdomen is round Reports lower abdominal pain, bloating, diarrhea. Derm: Skin is pink, warm \T\ dry. 19:04 Reassessment: Patient is alert, oriented x 3, equal unlabored respirations, skin jj7 warm/dry/pink. ASSUMED CARE OF PT. 19:51 General: Appears in no apparent distress. comfortable, Behavior is calm, cooperative, jj7 appropriate for age. Pain: Denies pain. Vital Signs: 16:46 BP 140 / 73; Pulse 64; Resp 16; Temp 98.3; Pulse Ox 100% ; Weight 74.84 kg; Height 5 db ft. 11 in. ; Pain 3/10; 18:21 BP 150 / 75; Pulse 58; Resp 18; Pulse Ox 98% on R/A; ph 19:30 BP 152 / 73; Pulse 62; Resp 17; Pulse Ox 100% ; Pain 0/10; jj7 20:30 BP 139 / 73; Pulse 59; Resp 19; Pulse Ox 100% ; Pain 0/10; jj7 16:46 Body Mass Index 23.01 (74.84 kg, 180.34 cm) db 16:46 Pain Scale: Adult db 19:30 Pain Scale: Adult jj7 20:30 Pain Scale: Adult jj7 ED Course: 16:23 Patient arrived in ED. ra3 16:47 Triage completed. db 16:47 Arm band placed on right wrist. Patient placed in waiting room. db 17:06 Yoj[facility] Bone [facility]. sb4 17:06 Dashawn Galan MD is Attending Physician. sb4 17:34 Rachael Garrison, RN is Primary Nurse. ph 18:18 CBC with Diff Sent. ph 18:18 CMP Sent. ph 18:19 Patient has correct armband on for positive identification. Bed in low position. Call ph light in reach. Side rails up X 1. Pulse ox on. NIBP on. Door closed. Noise minimized. 18:19 Lipase Sent. ph 18:20 Initial lab(s) drawn, by ky, sent to lab. Inserted saline lock: 20 gauge in right ph antecubital area, using aseptic technique. Blood collected. Flushed with 10 mL NS. 19:05 Provided Education on: USE OF CALLBELL. jj7 19:23 CT Abd/Pelvis - Without Contrast In Process Unspecified. EDMS 19:51 Diet: Patient given water. Tolerated well. jj7 21:06 No provider procedures requiring assistance completed. IV discontinued, intact, jj7 bleeding controlled, No redness/swelling at site. Pressure dressing applied. Administered Medications: 18:19 Drug: NS 0.9% IV 1000 ml IV at 1 bolus Per protocol; 1000 mL bolus Route: IV; Rate: 1 ph bolus; Site: right antecubital; 19:52 Follow up: IV Status: Completed infusion jj7 21:03 Not Given (Patient Refused): ns 0.9% 1000 ml IV at 1 bolus Per protocol; 1000 mL bolus jj7 21:04 Not Given (Patient Refused): loperamide4 mg PO once jj7 Medication: 18:19 VIS not applicable for this client. ph Outcome: 20:54 Discharge ordered by . sb4 21:06 Discharged to home ambulatory, jj7 21:06 Condition: improved 21:06 Discharge instructions given to patient, Instructed on discharge instructions, follow up and referral plans. Demonstrated understanding of instructions, follow-up care, 21:07 Patient left the ED. jj7 Signatures: Dispatcher [employer] EDPR Rachael Garrison RN RN ph Johnson, Juwairiyah, RN RN jj7 Linh Gudino RN RN db Yojana Bone PA-C PATamika sb4 Jeannie Reza ra3 Corrections: (The following items were deleted from the chart) 19:51 19:04 Reassessment: Patient is alert, oriented x 3, equal unlabored respirations, skin jj7 warm/dry/pink. ASSUMED CARE OF PT jj7 19:52 19:51 Reassessment: PT DRINKING WATER AND TOLERATING WELL jj7 jj7
--- NOTE | 2024-01-27 20:55 | EDPHYS ---
Physician Documentation [facility] Name: Huan Gibbs Age: 68 yrs Sex: Male : 1955 Arrival Date: 01/27/2024 Time: 16:19 Bed 7 Private MD: ED Physician Dashawn Galan HPI: 01/26 17:44 This 68 yrs old Male presents to ER via Ambulatory with complaints of Diarrhea. sb4 17:44 The patient presents to the emergency department with diarrhea, abdominal pain. Onset: sb4 The symptoms/episode began/occurred 3 day(s) ago. Possible causes: unknown. The symptoms are aggravated by nothing. The symptoms are alleviated by nothing. Associated signs and symptoms: The patient has no apparent associated signs or symptoms. The patient has not experienced similar symptoms in the past. The patient has not recently seen a physician. diarrhea and diffuse abdominal pain x 3 days. been taking lomotil without any improvement in symptoms. denies any nausea, vomiting, fever, blood in stool. Historical: - Allergies: 16:47 Iodine; db 16:47 Tetracycline; db - PMHx: 16:47 Hypertension; Kidney stones; Myocardial infarction; db - Immunization history:: Adult Immunizations unknown. - Infectious Disease History:: Denies. - Social history:: Smoking status: Patient reports the use of cigarette tobacco products, smokes one-half pack cigarettes per day. ROS: 17:45 Constitutional: Negative for fever, chills, and weight loss, sb4 17:45 Abdomen/GI: Positive for abdominal pain, diarrhea, 17:45 All other systems are negative, Exam: 17:45 Constitutional: This is a well developed, well nourished patient who is awake, alert, sb4 and in no acute distress. Head/Face: Normocephalic, atraumatic. Eyes: Extra-ocular motions intact. Periorbital areas with no swelling, redness, or edema. ENT: Mucous membranes moist. Cardiovascular: Regular rate and rhythm with a normal S1 and S2. Respiratory: Lungs have equal breath sounds bilaterally, clear to auscultation and percussion. No rales, rhonchi or wheezes noted. No increased work of breathing, no retractions or nasal flaring. Skin: Warm, dry with normal turgor. Normal color with no rashes, no lesions, and no evidence of cellulitis. 17:45 Abdomen/GI: Inspection: distension, that is mild, scar(s), are noted in the epigastric area, umbilical area and suprapubic area, Bowel sounds: hyperactive, in the right lower quadrant and left lower quadrant, Palpation: abdomen is soft and non-tender, Vital Signs: 16:46 BP 140 / 73; Pulse 64; Resp 16; Temp 98.3; Pulse Ox 100% ; Weight 74.84 kg; Height 5 db ft. 11 in. ; Pain 3/10; 18:21 BP 150 / 75; Pulse 58; Resp 18; Pulse Ox 98% on R/A; ph 19:30 BP 152 / 73; Pulse 62; Resp 17; Pulse Ox 100% ; Pain 0/10; jj7 20:30 BP 139 / 73; Pulse 59; Resp 19; Pulse Ox 100% ; Pain 0/10; jj7 16:46 Body Mass Index 23.01 (74.84 kg, 180.34 cm) db 16:46 Pain Scale: Adult db 19:30 Pain Scale: Adult jj7 20:30 Pain Scale: Adult jj7 MDM: 17:06 Patient medically screened. sb4 20:54 Data reviewed: vital signs, nurses notes, lab test result(s), radiologic studies, and sb4 as a result, I will discharge patient. Counseling: I had a detailed discussion with the patient and/or guardian regarding the historical points, exam findings, and any diagnostic results supporting the discharge/admit diagnosis, lab results, radiology results, to return to the emergency department if symptoms worsen or persist or if there are any questions or concerns that arise at home. 01/26 17:43 Order name: CBC with Diff; Complete Time: 18:24 sb4 01/26 17:43 Order name: CMP; Complete Time: 18:35 sb4 01/26 17:43 Order name: Lipase; Complete Time: 18:35 sb4 01/26 17:46 Order name: CT Abd/Pelvis - Without Contrast; Complete Time: 20:00 sb4 01/26 17:43 Order name: IV Saline Lock; Complete Time: 18:18 sb4 01/26 17:43 Order name: Labs collected and sent; Complete Time: 18:18 sb4 Administered Medications: 18:19 Drug: NS 0.9% IV 1000 ml IV at 1 bolus Per protocol; 1000 mL bolus Route: IV; Rate: 1 ph bolus; Site: right antecubital; 19:52 Follow up: IV Status: Completed infusion jj7 21:03 Not Given (Patient Refused): ns 0.9% 1000 ml IV at 1 bolus Per protocol; 1000 mL bolus jj7 21:04 Not Given (Patient Refused): loperamide4 mg PO once jj7 Disposition Summary: 01/27/24 20:54 Discharge Ordered Notes: Location: Home sb4 Problem: new sb4 Symptoms: have improved sb4 Condition: Stable sb4 Diagnosis - Diarrhea, unspecified sb4 Followup: sb4 - With: Private Physician - When: As needed - Reason: Recheck today's complaints, Re-evaluation by your physician Discharge Instructions: - Discharge Summary Sheet sb4 - Food Choices to Help Relieve Diarrhea, Adult sb4 - Rehydration, Adult sb4 Forms: - Patient Portal Instructions sb4 - Leadership Thank You Letter sb4 Addendum: 02/03/2024 15:41 Co-signature as Attending Physician, Dashawn Galan MD I agree with the assessment and c simmons plan of care. Signatures: Dispatcher [employer] EDMS Dashawn Galan MD MD cha Hall, Patricia, RN RN Linh Gudino, RN RN Yojana Guajardo PA-C PATamika sb4 Enoch Muro RN jj7 Corrections: (The following items were deleted from the chart) 01/26 17:44 17:44 CBC+H.LAB.BRZ ordered. EDMS EDMS 17:44 17:44 COMPREHENSIVE METABOLIC PANEL+C.LAB.BRZ ordered. EDMS EDMS 17:44 17:44 LIPASE+C.LAB.BRZ ordered. EDMS EDMS 18:04 17:44 Abdomen Pelvis W Con+CT.RAD.BRZ ordered. EDMS EDMS
[2024-01-27 21:32] VITALS: TEMP 98.3
[2024-01-27 21:34] VITALS: O2SAT 100
[2024-01-27 21:35] VITALS: BP 139/73
== END 2024-01-27 21:07 | disposition home or self-care (01) ==
LOC: ER 16:19
DX: R19.7 Diarrhea, unspecified (principal); I10 Essential (primary) hypertension; I25.2 Old myocardial infarction; F17.210 Nicotine dependence, cigarettes, uncomplicated; Z87.442 Personal history of urinary calculi
CPT/HCPCS: 96361; 85025; 36415; 83690; 80053; 74176; 96360; 99284; J7030

== ENCOUNTER 2024-07-08 18:44 | Emergency (ER) | payer OTHER ==
[2024-07-08] MEDS ORDERED: ONDANSETRON 4 MG/2 ML VIAL ONE (19:40)
[2024-07-08] MEDS ORDERED: MORPHINE 2 MG/ML SYR ONE (19:41)
[2024-07-08 19:52] LABS: Absolute Eosinophils 0.1 K/uL (0-0.5); Absolute Monocytes 0.6 K/uL (0.1-1.3); Absolute Neutrophil 2.6 K/uL (1.8-8.0); Basophils % 0.5 % (0-1.3); Eosinophils % 2.4 % (0-4.4); Hemoglobin 10.7 g/dL (13.6-17.9); Lymphocytes % 24.2 % (15.3-44.8); MCH 32.6 pg (27.0-35.0); MCHC 34.4 g/dL (32.0-36.0); MCV 94.7 fL (80-100); MPV 8.4 fL (7.6-11.3); Monocytes % 13.1 % (3.3-12.3); Neutrophils % 59.8 % (41.7-73.7); Nucleated Red Blood Cells % 0.1 % (0-0); Platelets 171 thou/uL (152-406); RBC Red Blood Cell Count 3.27 M/uL (4.33-5.43); Red Cell Distribution Width 14.7 % (12.1-15.2)
[2024-07-08 19:54] LABS: Specific Gravity 1.011 (1.005-1.030); Sqamous Epithelial None Seen /HPF (None Seen); Urine Bacteria None Seen /HPF (<20); Urine Bilirubin NEGATIVE (Negative); Urine Blood Negative (Negative); Urine Clarity Clear (Clear); Urine Color Yellow (Yellow); Urine Culture Reflex Order NOT NEEDED; Urine Glucose NEGATIVE (Negative); Urine Ketones NEGATIVE (Negative); Urine Microscopic Reflex YN ORDER UMIC; Urine Mucus Slight /HPF (None Seen); Urine Nitrite NEGATIVE (Negative); Urine Protein 2+ (Negative); Urine RBC <5 /HPF (None Seen); Urine Urobilinogen Normal (Normal); Urine WBC <5 /HPF (<5)
--- NOTE | 2024-07-08 20:11 | RAD REPORT ---
EXAMINATION: Stone Protocol CLINICAL INDICATION: Abdominal pain. Left flank pain TECHNIQUE: CT abdomen and pelvis was performed, without IV contrast, as per department protocol. Oral contrast not given. Axial, sagittal and coronal reconstructions were obtained. One or more of the following dose reduction techniques were used: Automated exposure control, adjustment of the mA and k V according to the patient size, and iterative reconstruction. Unless otherwise specified, incidental findings do not require dedicated imaging follow-up. COMPARISON: 2023 FINDINGS: The lack of intravenous and oral contrast limits the sensitivity of this exam for evaluation of solid visceral organs, vascular structures, and bowel Multiple, bilateral renal cysts again demonstrated largest extends off of the left kidney measuring 1 7 cm. No hemorrhage visualized within any of the cysts. Multiple, bilateral nonobstructing renal calculi are present. Prostatic calcifications. Metallic clips within the upper abdomen. Small hepatic cyst unchanged. The spleen, pancreas and adrenals grossly normal. No evidence of diverticulitis. IMPRESSION: Polycystic renal disease. 17 cm left renal cyst unchanged from prior exam. No bleed visualized within the cyst. Nonobstructing bilateral renal calculi
[2024-07-08 20:12] LABS: Albumin 2.8 g/dL (3.4-5.0); Albumin/Globulin Ratio 0.8 (1.1-1.8); Anion Gap 7.1 mEq/L (5.0-15.0); Bilirubin Total 0.7 mg/dL (0.2-1.0); Globulin 3.5 g/dL (2.3-3.5); Potassium 3.1 mEq/L (3.5-5.1); Protein, Total 6.3 g/dL (6.4-8.2)
[2024-07-08] MEDS ORDERED: HYDROCODONE/APAP 5/325 MG TAB ONE (21:19)
[2024-07-08] MEDS ORDERED: NA CHLORIDE 0.9% 250 ML ONE (21:19)
[2024-07-08] MEDS ORDERED: methocarbamoL 750 MG TAB ONE (21:19)
[2024-07-08] MEDS ORDERED: POTASSIUM 25 MEQ EFFERV TAB ONE (21:19)
--- NOTE | 2024-07-08 22:09 | EDPHYS ---
Physician Documentation [facility] Name: Huan Gibbs Age: 69 yrs Sex: Male : 1955 Arrival Date: 07/08/2024 Time: 18:44 Bed 2 Private MD: ED Physician Sadia Oleary HPI: 07/08 19:20 This 69 yrs old Male presents to ER via Ambulatory with complaints of Fever, Abdominal cp Pain. 19:20 The patient reports fever, not measured (subjective). Onset: The symptoms/episode cp began/occurred 3 day(s) ago. Associated signs and symptoms: Pertinent positives: abdominal pain, Pertinent negatives: altered mental status, chest pain, cough, diarrhea, vomiting. Severity of symptoms: in the emergency department the symptoms have improved mildly. pain similar to when diagnosed with kidney stone. Historical: - Allergies: 19:13 Iodine; bm8 19:13 Tetracycline; bm8 19:13 iodine contrast; bm8 - PMHx: 19:13 Hypertension; Myocardial infarction; Kidney stones; bm8 - PSHx: 19:13 7 heart stent (Kidney stones); bm8 19:14 back sx; bm8 - Immunization history:: Adult Immunizations up to date. - Infectious Disease History:: Denies. - Social history:: Smoking status: Patient reports use of chewing tobacco. Patient/guardian denies using tobacco, Stopped _ months ago 1. ROS: 19:25 Constitutional: Positive for fever, Negative for body aches, chills, poor PO intake, cp 19:25 Eyes: Negative for injury, pain, redness, and discharge, cp 19:25 ENT: Negative for drainage from ear(s), ear pain, sore throat, difficulty swallowing, difficulty handling secretions, 19:25 Cardiovascular: Negative for chest pain, palpitations, 19:25 Respiratory: Negative for cough, shortness of breath, wheezing, 19:25 Abdomen/GI: Positive for abdominal pain, Negative for vomiting, diarrhea, constipation, black/tarry stool, rectal bleeding, 19:25 Back: Negative for injury or acute deformity, decreased range of motion, 19:25 : Positive for flank pain, Negative for hematuria, testicular pain 19:25 Neuro: Negative for altered mental status, dizziness, headache, weakness, 19:25 All other systems are negative, Exam: 19:30 Constitutional: The patient appears in no acute distress, alert, awake, non-toxic, well cp developed, well nourished, 19:30 Head/Face: Normocephalic, atraumatic. cp 19:30 Eyes: Periorbital structures: appear normal, Conjunctiva: normal, no exudate, no injection, Sclera: no appreciated abnormality, Lids and lashes: appear normal, bilaterally, 19:30 ENT: External ear(s): are unremarkable, Nose: is normal, Mouth: Lips: moist, Oral mucosa: moist, Posterior pharynx: Airway: no evidence of obstruction, patent, 19:30 Chest/axilla: Inspection: normal, Palpation: is normal, no crepitus, no tenderness, 19:30 Cardiovascular: Rate: normal, Rhythm: regular, Edema: is not appreciated, JVD: is not appreciated, 19:30 Respiratory: the patient does not display signs of respiratory distress, Respirations: normal, no use of accessory muscles, no retractions, labored breathing, is not present, Breath sounds: are clear throughout, no decreased breath sounds, no stridor, no wheezing, 19:30 Abdomen/GI: Inspection: abdomen appears normal, Bowel sounds: active, all quadrants, Palpation: soft, in all quadrants, moderate abdominal tenderness, in the left flank and left lower abdomen, rebound tenderness, is not appreciated, involuntary guarding, is not appreciated, 19:30 Back: CVA tenderness, is absent, 19:30 Skin: cellulitis, is not appreciated, no rash present. 19:30 Neuro: Orientation: is normal, Mentation: is normal, Motor: moves all fours, strength is normal, Sensation: is normal, Vital Signs: 19:11 BP 171 / 85; Pulse 61; Resp 18; Temp 98.4; Pulse Ox 99% ; Weight 72.57 kg; Height 5 ft. bm8 11 in. ; Pain 5/10; 21:15 BP 174 / 76; Pulse 58; Resp 18; Pulse Ox 98% on R/A; Pain 7/10; rg5 19:11 Body Mass Index 22.32 (72.57 kg, 180.34 cm) bm8 19:11 Pain Scale: Adult bm8 21:15 Pain Scale: Adult rg5 MDM: 19:14 Medical Screening Exam initiated cp 20:00 Differential diagnosis: pneumonia UTI, pyelonephritis, colitis, diverticulitis, kidney cp stone. 22:08 Data reviewed: vital signs, nurses notes, lab test result(s), radiologic studies, CT cp scan, and as a result, I will discharge patient. 22:08 I considered the following discharge prescriptions or medication management in the emergency department Medications were administered in the Emergency Department. See MAR. Care significantly affected by the following chronic conditions: Hypertension. Counseling: I had a detailed discussion with the patient and/or guardian regarding the historical points, exam findings, and any diagnostic results supporting the discharge/admit diagnosis, lab results, radiology results, to return to the emergency department if symptoms worsen or persist or if there are any questions or concerns that arise at home. Response to treatment: the patient's symptoms have mildly improved after treatment, and as a result, I will discharge patient. Special discussion: monitor for rash to area and f/u immediately if rash develops. 07/08 19:16 Order name: CBC with Diff; Complete Time: 20:55 07/08 20:55 Interpretation: Normal except: RBC 3.27; HGB 10.7; HCT 31.0; MN% 13.1. 07/08 19:16 Order name: CMP; Complete Time: 20:55 07/08 20:55 Interpretation: Normal except: K 3.1; GLUC 109; BUN 41; CRE 2.16; GFR 32; AST 62; TP cp 6.3; ALB 2.8; A/G 0.8. 07/08 19:16 Order name: Lipase; Complete Time: 20:55 07/08 19:16 Order name: Urinalysis w/ reflexes; Complete Time: 20:55 07/08 20:55 Interpretation: Normal except: UPROT 2+; UESTR 75. 07/08 19:16 Order name: Lactate w/ 2H reflex if indic.; Complete Time: 20:55 07/08 20:57 Interpretation: Reviewed. 07/08 19:16 Order name: CT Stone Protocol; Complete Time: 20:55 07/08 20:57 Interpretation: Report reviewed. 07/08 19:16 Order name: IV Saline Lock; Complete Time: 19:46 07/08 19:16 Order name: Labs collected and sent; Complete Time: 19:46 cp Administered Medications: 19:45 Drug: morphine IVP or IV 2 mg IVP once over 4 mins Route: IVP; Infused Over: 4 mins; lg3 Site: right antecubital; 19:46 Drug: Ondansetron IVP 4 mg IVP once; over 2 minutes Route: IVP; Site: right antecubital;lg3 21:27 Drug: Potassium PO Effervescent Tablet 50 mEq PO once; dissolve in 4 ounces of water or rg5 juice Route: PO; 21:27 Drug: Methocarbamol PO 750 mg PO once Route: PO; rg5 21:27 Drug: HYDROcodone-acetaminophen PO 5 mg-325 mg 1 tabs PO once Route: PO; rg5 21:29 Drug: NS 0.9% IV 250 ml IV at bolus once; to be given as a bolus over 30 minutes Route: rg5 IV; Rate: bolus; Site: right antecubital; Disposition Summary: 07/08/24 22:08 Discharge Ordered Notes: Location: Home cp Problem: new cp Symptoms: have improved cp Condition: Stable cp Diagnosis - Abdominal pain, unspecified - left flank pain cp Followup: cp - With: Private Physician - When: 2 - 3 days - Reason: Recheck today's complaints Discharge Instructions: - Discharge Summary Sheet cp - Abdominal Pain, Adult cp - Flank Pain, Adult cp Forms: - Medication Reconciliation Form cp - Antibiotic Education cp - Prescription Opioid Use cp - Patient Portal Instructions cp - Leadership Thank You Letter cp Prescriptions: - Zofran 4 mg Oral Tablet - take 1 tablet ORAL route every 12 hours As needed; 20 tablet; Refills: 0, cp Product Selection Permitted - dicyclomine 20 mg Oral tablet - take 1 tablet ORAL route 4 times per day; 30 tablet; Refills: 0, Product cp Selection Permitted - methocarbamol 750 mg Oral tablet - take 1 tablet ORAL route 3 times per day; 30 tablet; Refills: 0, Product cp Selection Permitted Signatures: Dispatcher [employer] EDMS Dashawn Gonzalez PA PA cp Able, Lacie RN RN lg3 Dwight Miranda RN RN bm8 Jamison Zaragoza, MENG RN rg5 Corrections: (The following items were deleted from the chart) 07/09 19:02 19:00 Constitutional: Positive for fever, cp cp
--- NOTE | 2024-07-08 22:09 | ER ---
Nurse's Notes [facility] Name: Huan Gibbs Age: 69 yrs Sex: Male : 1955 Arrival Date: 07/08/2024 Time: 18:44 Bed 2 Private MD: Diagnosis: Abdominal pain, unspecified-left flank pain Presentation: 07/08 19:11 Chief complaint: Patient states: I have had fever and left sided abd pain for three bm8 days, it feels like a kidney stone. Coronavirus screen: At this time, the client does not indicate any symptoms associated with coronavirus-19. Ebola Screen: Patient negative for fever greater than or equal to 101.5 degrees Fahrenheit, and additional compatible Ebola Virus Disease symptoms Patient denies exposure to infectious person. Patient denies travel to an Ebola-affected area in the 21 days before illness onset. No symptoms or risks identified at this time. Initial Sepsis Screen: Does the patient meet any 2 criteria? No. Patient's initial sepsis screen is negative. Does the patient have a suspected source of infection? No. Patient's initial sepsis screen is negative. Risk Assessment: Do you want to hurt yourself or someone else? Patient reports no desire to harm self or others. Onset of symptoms was July 04, 2024 at 08:00. 19:11 Method Of Arrival: Ambulatory bm8 19:11 Acuity: BRII 2 bm8 Triage Assessment: 19:14 General: Appears in no apparent distress. uncomfortable, Behavior is calm, cooperative, bm8 appropriate for age. Pain: Complains of pain in anterior aspect of left lateral abdomen, posterior aspect of left lateral abdomen, left upper quadrant and left lower quadrant Pain currently is 5 out of 10 on a pain scale. Quality of pain is described as aching, crampy, sharp. EENT: No deficits noted. Neuro: No deficits noted. Cardiovascular: No deficits noted. Respiratory: No deficits noted. GI: Abdomen is flat, non-distended, Reports lower abdominal pain, Pain is 5 out of 10 on a pain scale. fever. : Denies burning with urination, cramping discharge, inability to void, incontinence, pain urinary frequency, urgency. Historical: - Allergies: 19:13 Iodine; bm8 19:13 Tetracycline; bm8 19:13 iodine contrast; bm8 - PMHx: 19:13 Hypertension; Myocardial infarction; Kidney stones; bm8 - PSHx: 19:13 7 heart stent (Kidney stones); bm8 19:14 back sx; bm8 - Immunization history:: Adult Immunizations up to date. - Infectious Disease History:: Denies. - Social history:: Smoking status: Patient reports use of chewing tobacco. Patient/guardian denies using tobacco, Stopped _ months ago 1. Vital Signs: 19:11 BP 171 / 85; Pulse 61; Resp 18; Temp 98.4; Pulse Ox 99% ; Weight 72.57 kg; Height 5 ft. bm8 11 in. ; Pain 5/10; 21:15 BP 174 / 76; Pulse 58; Resp 18; Pulse Ox 98% on R/A; Pain 7/10; rg5 19:11 Body Mass Index 22.32 (72.57 kg, 180.34 cm) bm8 19:11 Pain Scale: Adult bm8 21:15 Pain Scale: Adult rg5 ED Course: 18:46 Patient arrived in ED. mr 18:47 Dashawn Gonzalez PA is PHCP. cp 18:47 Sadia Oleary MD is Attending Physician. cp 19:13 Triage completed. bm8 19:14 Arm band placed on right wrist. bm8 19:45 Initial lab(s) drawn, by ED staff, sent to lab. Urine collected: clean catch specimen. lg3 Inserted saline lock: 20 gauge in right antecubital area, using aseptic technique. Blood collected. Flushed with 10 mL NS. 19:46 Lactate w/ 2H reflex if indic. Sent. lg3 19:46 CBC with Diff Sent. lg3 19:46 CMP Sent. lg3 19:46 Lipase Sent. lg3 19:46 Urinalysis w/ reflexes Sent. lg3 20:01 CT Stone Protocol In Process Unspecified. EDMS Administered Medications: 19:45 Drug: morphine IVP or IV 2 mg IVP once over 4 mins Route: IVP; Infused Over: 4 mins; lg3 Site: right antecubital; 19:46 Drug: Ondansetron IVP 4 mg IVP once; over 2 minutes Route: IVP; Site: right antecubital;lg3 21:27 Drug: Potassium PO Effervescent Tablet 50 mEq PO once; dissolve in 4 ounces of water or rg5 juice Route: PO; 21:27 Drug: Methocarbamol PO 750 mg PO once Route: PO; rg5 : Drug: HYDROcodone-acetaminophen PO 5 mg-325 mg 1 tabs PO once Route: PO; rg5 Drug: NS 0.9% IV 250 ml IV at bolus once; to be given as a bolus over 30 minutes Route: rg5 IV; Rate: bolus; Site: right antecubital; Outcome: 22:08 Discharge ordered by MD. farias :27 Patient left the ED. rg5 Signatures: Dispatcher [employer] EDMS Jyoti Meza, Reg Reg mr Dashawn Gonzalez PA PA cp Able, Lacie RN RN lg3 Dwight Miranda, RN RN bm8 Jamison Zaragoza, RN RN rg5
[2024-07-09 00:16] VITALS: TEMP 98.4
[2024-07-09 00:18] VITALS: BP 174/76; O2SAT 98
== END 2024-07-08 22:27 | disposition home or self-care (01) ==
LOC: ER 18:44
DX: R10.32 Left lower quadrant pain (principal); R50.9 Fever, unspecified; Z87.442 Personal history of urinary calculi; F17.220 Nicotine dependence, chewing tobacco, uncomplicated
CPT/HCPCS: 85025; 81001; 36415; 83605; 83690; 80053; 76377; 74176; 96375; 96374; 99284; J2270; J2405; J7050